=== PATIENT | male | born 1995 ===

== ENCOUNTER 2017-08-11 22:29 | Inpatient (IN) | payer SELFPAY ==
[~2017-08-11 22:29] MED LIST: ISOVUE-370 76%-LOCM 1 ML ONE
[2017-08-11] MEDS ORDERED: Succinylcholine Chloride 20 MG/ML 10 ml SYRINGE FS ONE ×2 (22:32→22:42)
[2017-08-11 22:42] LABS: #Basophils 0.2 thou/uL (0.0-0.2); #Eosinphils 0.3 thou/uL (0.0-0.7); #Monocytes 0.4 thou/uL (0.11-0.59); #Neutrophils 2.6 thou/uL (1.40-6.50); %Basophils 1.9 % (0.0-1.0); %Eosinophils 3.3 % (0.0-10.0); %Lymphocytes 58.5 % (21.0-51.0); %Monocytes 5.1 % (0.0-10.0); %Neutrophils 31.2 % (42.0-75.0); Mean Corpuscular HGB CONC 34.5 g/dL (32.0-36.0); Mean Corpuscular Hemoglobin 31.6 pg (27.0-31.0); Mean Corpuscular Volume 91.5 fl (80.0-94.0); Mean Platelet Volume 8.2 fL (7.4-10.4); Platelet Count 237 thou/uL (130-400); RBC Distribution Width 13.3 % (11.5-14.5); Red Blood Cell (RBC) Count 4.44 mill/uL (4.70-6.10); White Blood Cell (WBC) Count 8.5 thou/uL (4.8-10.8)
[2017-08-11] MEDS ORDERED: Atropine Sulfate 1 mg/10 ml Syringe ONE (22:44)
[2017-08-11] MEDS ORDERED: fentaNYL Citrate/PF 2,000 MCG in Sodium Chloride 0.9% 60 ML IV SCH (22:55)
[2017-08-11 22:56] LABS: INR-International Normal Ratio 1.1; PTT 24.1 SEC (22.9-36.1); Prothrombin Time 14.4 SEC (12.0-14.7)
[2017-08-11 22:58] LABS: ALT (SGPT) 35 U/L (8-55); AST (SGOT) 29 U/L (5-34); Albumin 4.5 g/dL (3.4-4.8); Alcohol 245 mg/dL (Less than 10); Alkaline Phosphatase 129 U/L (40-150); Anion Gap 14 mmol/L (10-20); BUN (Urea Nitrogen) 10 mg/dL (8.4-25.7); Bilirubin, Total 0.2 mg/dL (0.2-1.2); Calc. Creatinine Clearance 0 mL/min (70-130); Calcium 8.5 mg/dL (7.8-10.44); Carbon Dioxide 22 mmol/L (23-31); Chloride 109 mmol/L (98-107); Estimated GFR-MDRD 62; Globulin 3.1 g/dL (2.4-3.5); Glucose 129 mg/dL (83-110); Protein, Total 7.6 g/dL (5.8-8.1); Sodium 142 mmol/L (136-145)
[2017-08-11] MEDS ORDERED: Fentanyl 100 MCG/2 ML VIAL ONE (22:58)
[2017-08-11 23:01] LABS: Bilirubin Negative (Negative); Blood, Urine Negative (Negative); Clarity CLEAR (Clear); Glucose, Urine (Dipstick) Negative (Negative); Leukocyte Negative (Negative); Nitrite Negative (Negative); Protein, Urine (Dipstick) Negative (Neg-Trace); Specific Gravity, Urine 1.005 (1.002-1.036); Urobilinogen 0.2 mg/dL (0.2-1.0)
[2017-08-11 23:07] LABS: Bacteria/HPF None Seen HPF (None Seen); Hyaline Casts/LPF 0-3 HYALINE CAST LPF (0-3 Hyaline); Pathc Cast-AUWi Flag 0.58 (0-2.49); RBC/HPF 0-3 HPF (0-3); Squamous Epithelial 0-3 HPF (0-3); WBC/HPF None Seen HPF (0-3)
[2017-08-11 23:10] LABS: Amphetamine Not Detected (NotDetected); Barbiturates Screen Not Detected (NotDetected); Benzodiazepine Screen Not Detected (NotDetected); Medtox Control Line Valid? VALID (VALID); Medtox Reader # READER 4; Methadone Not Detected (NotDetected); Methamphetamine Not Detected (NotDetected); Opiate Screen Not Detected (NotDetected); Oxycodone Screen Not Detected (NotDetected); Phencyclidine (PCP) Not Detected (NotDetected); THC/Cannabinoid Screen Not Detected (NotDetected); Tricyclic Screen Not Detected (NotDetected)
[2017-08-11 23:14] LABS: Potassium 2.9 mmol/L (3.5-5.1)
[2017-08-11 23:43] LABS: Actual Bicarbonate (HCO3a) 19.5 mEq/L (22-26); CO2 Tension 34.4 mmHg (35.0-45.0); Hematocrit-ABG 34.4 % (42.0-52.0); Hemoglobin (Hb) 11.5 g/dL (14.0-18.0); O2 Tension (PaO2) 355.4 mmHg (80.0-100.0); pH, Arterial 7.37 (7.35-7.45)
[2017-08-11 23:44] LABS: Analyzer IN Cardio ER; Puncture Site RRA
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
--- NOTE | 2017-08-12 00:14 | RAD ---
PORTABLE AP CHEST X-RAY 08/11/17 HISTORY: Post tube placement. COMPARISON: 08/11/17 FINDINGS: Lung apices are excluded from view. Endotracheal tube is noted in place with the tip just above the l evel of the rené. There is a nasogastric tube noted in place with tip overlying the mid esophagus. There is patchy density at the medial left lung base which may be related to atelectasis as this exam is obtained in shallow depth of inspiration. Lung apices are excluded from view, but no obvious pneu mothorax or pleural effusion is appreciated. Osseous structures are intact. No other interval change. IMPRESSION: 1. Endotracheal tube noted in placed just above the level of the rené. 2. Nasogastric tube noted in place with tip overlying expected location of the mid esophagus. 3. Probable atelectasis at the left lung base. POS: [facility]
[2017-08-12] MEDS ORDERED: Midazolam HCl 5 mg/ml Vial ONE (01:08)
[2017-08-12] MEDS ORDERED: DISCONTINUE PREVIOUS NARCOTIC PAIN MEDICATIONS AND BENZODIAZEPINES FS SCH (01:58)
[2017-08-12] MEDS ORDERED: Propofol 1,000 MG/100 ML VIAL IV PRN (01:58)
[2017-08-12] MEDS ORDERED: Morphine 4 MG/ML VIAL SLOW IVP PRN (01:58)
[2017-08-12] MEDS ORDERED: Fentanyl BOLUS 250 ML IVPB PRN (01:58)
[2017-08-12] MEDS ORDERED: Lorazepam 2 MG/ML VIAL SLOW IVP PRN (01:58)
[2017-08-12] MEDS ORDERED: Propofol BOLUS 1,000 MG/100 ML VIAL IV PRN (01:58)
[2017-08-12] MEDS ORDERED: Bisacodyl 10 MG SUPP PR PRN (02:16)
[2017-08-12] MEDS ORDERED: Dextrose 50% Abboject 50 ML SYRINGE SLOW IVP PRN (02:16)
[2017-08-12] MEDS ORDERED: Dextrose 5% in Water 1,000 ML IV PRN (02:16)
[2017-08-12] MEDS ORDERED: Sodium Chloride 0.9% 1,000 ML IV SCH (02:16)
[2017-08-12] MEDS ORDERED: Ondansetron HCl/PF 4 MG/2 ML Vial IVP PRN (02:16)
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
[2017-08-12 05:23] LABS: #Eosinphils 0.1 thou/uL (0.0-0.7); #Lymphocytes 3.2 thou/uL (1.20-3.40); #Monocytes 1.1 thou/uL (0.11-0.59); #Neutrophils 8.1 thou/uL (1.40-6.50); %Basophils 0.2 % (0.0-1.0); %Eosinophils 0.6 % (0.0-10.0); %Lymphocytes 25.5 % (21.0-51.0); %Monocytes 9.1 % (0.0-10.0); %Neutrophils 64.6 % (42.0-75.0); Hemoglobin 13.6 g/dL (14.0-18.0); Mean Corpuscular HGB CONC 33.6 g/dL (32.0-36.0); Mean Corpuscular Hemoglobin 30.3 pg (27.0-31.0); Mean Corpuscular Volume 90.3 fl (80.0-94.0); Mean Platelet Volume 8.5 fL (7.4-10.4); Platelet Count 225 thou/uL (130-400); RBC Distribution Width 13.2 % (11.5-14.5); Red Blood Cell (RBC) Count 4.47 mill/uL (4.70-6.10); White Blood Cell (WBC) Count 12.5 thou/uL (4.8-10.8)
[2017-08-12 05:27] LABS: Anion Gap 15 mmol/L (10-20); BUN (Urea Nitrogen) 9 mg/dL (8.4-25.7); Calc. Creatinine Clearance 31 mL/min (70-130); Calcium 8.6 mg/dL (7.8-10.44); Carbon Dioxide 19 mmol/L (23-31); Chloride 112 mmol/L (98-107); Estimated GFR-MDRD Greater than 90; Glucose 96 mg/dL (83-110); Magnesium 2.1 mg/dL (1.6-2.6); Potassium 3.7 mmol/L (3.5-5.1); Sodium 142 mmol/L (136-145)
[2017-08-12] MEDS ORDERED: Potassium Phosphate 30 MMOL in Sodium Chloride 0.9% 500 ML IVPB SCH (06:00)
[2017-08-12 07:16] VITALS: TEMP 98.1
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
[2017-08-12] MEDS ORDERED: Pantoprazole 40 MG VIAL IVP SCH (09:00)
[2017-08-12] MEDS ORDERED: Senokot S 8.6-50 MG TAB PO SCH (09:00)
[2017-08-12] MEDS ORDERED: Polyethylene Glycol 3350 17 GM Packet PO SCH (09:00)
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
--- NOTE | 2017-08-12 09:49 | RAD ---
PORTABLE SUPINE FRONTAL CHEST RADIOGRAPH: Date: 08/12/17 COMPARISON: 08/11/17. HISTORY: Intubated patient. FINDINGS: There are cutaneous sarah overlying the left costophrenic angle region, the lateral aspect of the l ower right hemithorax, and overlying the neck. Endotracheal tube and nasogastric tube are in proper position. The provided supine imaging limits ass essment for pneumothorax and pleural fluid. Heart and mediastinal contours are stable. No lobar consolidation or alveolar edema. IMPRESSION: Lines and tubes as above. No lobar consolidation or alveolar edema. POS: [facility]
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
[2017-08-15 14:03] LABS: Cocaine Metabolite Screen Detected (NotDetected)
== END 2017-08-12 14:20 | disposition home or self-care (01) | DRG 604 ==
LOC: ERS 22:29 → CCU 08-12 00:27 → EDBD 08-12 00:27
PROVIDERS: ADMIT Specialist; ATTEND Specialist
PROC: 0HQ5XZZ Repair Chest Skin, External Approach (ICD-10-PCS; principal; 2017-08-12)
PROC: 5A1935Z Respiratory Ventilation, Less than 24 Consecutive Hours (ICD-10-PCS; 2017-08-12)
PROC: 0BH17EZ Insertion of Endotracheal Airway into Trachea, Via Natural or Artificial Opening (ICD-10-PCS; 2017-08-12)
PROC: 0HQEXZZ Repair Left Lower Arm Skin, External Approach (ICD-10-PCS; 2017-08-12)
PROC: 0HQBXZZ Repair Right Upper Arm Skin, External Approach (ICD-10-PCS; 2017-08-12)
PROC: 0HQCXZZ Repair Left Upper Arm Skin, External Approach (ICD-10-PCS; 2017-08-12)
PROC: 0HQ6XZZ Repair Back Skin, External Approach (ICD-10-PCS; 2017-08-12)
DX: S21.112A Laceration without foreign body of left front wall of thorax without penetration into thoracic cavity, initial encounter (principal); J96.00 Acute respiratory failure, unspecified whether with hypoxia or hypercapnia; E83.39 Other disorders of phosphorus metabolism; S01.03XA Puncture wound without foreign body of scalp, initial encounter; S41.012A Laceration without foreign body of left shoulder, initial encounter; S31.010A Laceration without foreign body of lower back and pelvis without penetration into retroperitoneum, initial encounter; S41.112A Laceration without foreign body of left upper arm, initial encounter; F10.129 Alcohol abuse with intoxication, unspecified; R40.2432 Glasgow coma scale score 3-8, at arrival to emergency department; S21.111A Laceration without foreign body of right front wall of thorax without penetration into thoracic cavity, initial encounter; S51.812A Laceration without foreign body of left forearm, initial encounter; W26.9XXA Contact with unspecified sharp object(s), initial encounter; Y93.89 Activity, other specified; Y92.89 Other specified places as the place of occurrence of the external cause; Y90.8 Blood alcohol level of 240 mg/100 ml or more; E87.6 Hypokalemia
CPT/HCPCS: 36415; 70450; 71045; 71275; 72125; 74177; 80048; 80053; 80306; 80307; 81001; 82805; 83735; 84100; 85025; 85610; 85730; 86850; 86900; 86901; 93005; 94002; 94003; 94760; A4216; C9113; G0390; J0461; J2250; J3010; J7050